=== PATIENT | male | born 1945 | race Caucasian/White ===

== ENCOUNTER 2022-08-05 10:48 | Emergency (ER) | payer OTHER ==
[~2022-08-05] VITALS: Ht 180.3 cm; Wt 104.3 kg
[~2022-08-05 10:48] MED LIST: ACETAMINOPHEN-H1 TA2 PO; ALLERGY RELIEF10 M1 PO; AUGMENTIN 875875 MG PO; KEFLEX500 M1 PO; PRILOSEC10 MG PO; SIMVASTATIN20 MG PO
[2022-08-05] MEDS ORDERED: FLONASE ALLERG9.9 ML NAS (12:14)
[2022-08-05] MEDS ORDERED: CETIRIZINE10 MG PO (12:14)
== END 2022-08-05 12:36 | disposition home or self-care (01) ==
LOC: ED 10:48
DX: S05.01XA Injury of conjunctiva and corneal abrasion without foreign body, right eye, initial encounter (principal); R09.81 Nasal congestion; Z79.899 Other long term (current) drug therapy; X58.XXXA Exposure to other specified factors, initial encounter; Y93.89 Activity, other specified; Y92.89 Other specified places as the place of occurrence of the external cause; Y99.8 Other external cause status

== ENCOUNTER 2024-10-11 19:51 | Emergency (ER) | payer OTHER ==
[~2024-10-11] VITALS: Ht 154.9 cm; Wt 104.3 kg
[~2024-10-11 19:51] MED LIST changes: +CETIRIZINE10 MG PO; +FLONASE ALLERG9.9 ML NAS
[2024-10-11] MEDS ORDERED: METFORMIN HYDR500 MG PO (20:08)
[2024-10-11] MEDS ORDERED: Ondansetron Hydrochloride 4 MG/2 ML VIAL IV ONE (20:30)
[2024-10-11] MEDS ORDERED: MORPHINE Sulfate 2 MG/ML SYR IV ONE ×2 (20:30→23:05)
[2024-10-12] MEDS ORDERED: HYDROCODONE-AC1 EAC1 PO (01:55)
[2024-10-12] MEDS ORDERED: Acetaminophen/Hydrocodone 5 MG/325 MG TABLET PO ONE (02:15)
== END 2024-10-12 02:00 | disposition home or self-care (01) ==
LOC: ED 19:51
DX: S22.41XA Multiple fractures of ribs, right side, initial encounter for closed fracture (principal); M25.511 Pain in right shoulder; E78.00 Pure hypercholesterolemia, unspecified; K21.9 Gastro-esophageal reflux disease without esophagitis; Z79.899 Other long term (current) drug therapy; W11.XXXA Fall on and from ladder, initial encounter; Y93.89 Activity, other specified; Y92.89 Other specified places as the place of occurrence of the external cause; Y99.8 Other external cause status